=== PATIENT | male | born 1955 | race Caucasian/White ===

== ENCOUNTER 2018-10-16 12:49 | Observation (INO) ==
--- NOTE | 2018-10-16 16:11 | DR.H&P ---
H&P - History & Physical for Day of: H&P Date: 10/16/18 - History of Present Illness History of Present Illness: patient is a 63-year-old male that presents for evaluation of medical complaints. Patient reports continued left ear pain. Does report that he has been using the drops 3 times a day. Patient reports a problem with drug use. Does report that he has been shooting up methamphetamines for 4 years now. Does report that he would like help. Does state that he spends $150 per month. States that he does report that he has a problem. States that he feels like his veins are leaking due to injecting. states that he would like to be admitted for treatment. Does report severe depression. Does report that his last use was on Monday. Does report that blood sugars are severely elevated. Glucose could not be read in office. Does report that he ate peanut butter and chocolate Cheerios this morning. Does report a decrease in urination. Patient voices no other complaints at this time. - Past Medical History Past Medical History: Diabetes, Hypertension, Hypothyroidism Additional Medical History: Obesity, Fibromylagia, BPH - Social History Does patient currently use any type of tobacco product: Yes Have you used tobacco products in the last 12 months: Yes Type of Tobacco Use: Cigarettes Does any household member use tobacco: No Alcohol Use: None Drug Use: Methamphetamine - Medications Home Medications: No Known Drug Allergies Allergy (Verified 10/16/18 15:57) - Review of Systems Constitutional: Malaise Eyes: No Symptoms Reported ENT: No Symptoms Reported Respiratory: No Symptoms Reported Cardiovascular: No Symptoms Reported Gastrointestinal: No Symptoms Reported Genitourinary: No Symptoms Reported Musculoskeletal: No Symptoms Reported Skin: No Symptoms Reported Neurological: No Symptoms Reported Oriented: Normal Eyes: Normal Ear: Normal Nose: Normal Throat: Normal Respiratory: Clear Throughout Cardiovascular: Normal : Normal Auscultation: Bowel Sounds: Normal Palpation: Normal Tenderness: Normal Skin: Wound Musculoskeletal: Normal Psychiatric: Depression Mood Description: Flat Affect: Flat Speech Pattern: Clear - Assessment/Plan (1) Diabetes mellitus Qualifiers: Diabetes mellitus type: type 2 Diabetes mellitus complication status: with hyperglycemia Status: Acute Plan: Glucose checks, Sliding scale coverage, 1800 ADA diet (2) Methamphetamine abuse Status: Acute Plan: Social service consult for treatment (3) Hypertension Qualifiers: Hypertension type: essential hypertension Qualified Code(s): I10 - Essential (primary) hypertension Status: Acute Plan: Monitor BP (4) Depression Status: Acute Plan: Social service consult for treatment facility - Allergies Allergies/Adverse Reactions: Allergies Allergy/AdvReac Type Severity Reaction Status Date / Time No Known Drug Allergies Allergy Verified 10/16/18 15:57
[2018-10-16 17:10] LABS: BASOPHILS # (AUTO) 0.1 X10^3/uL (0.0-0.1); BASOPHILS % (AUTO) 1.5 % (0.2-1.0); EOSINOPHILS # (AUTO) 0.2 x10^3/uL (0.0-0.2); HEMATOCRIT 44.6 % (42.0-54.0); HEMOGLOBIN 15.1 g/dL (13.5-18.0); LYMPHOCYTES # (AUTO) 1.8 X10^3/uL (1.3-2.9); LYMPHOCYTES % (AUTO) 27.7 % (21.0-51.0); MEAN CORPUSCULAR HEMOGLOBIN 28.9 pg (27.0-34.0); MEAN CORPUSCULAR HGB CONC 33.9 g/dL (33.0-35.0); MEAN CORPUSCULAR VOLUME 85.3 fL (80.0-100.0); MEAN PLATELET VOLUME 7.8 fL (7.4-11.0); MONOCYTES # (AUTO) 0.5 x10^3/uL (0.3-0.8); MONOCYTES % (AUTO) 7.8 % (0.0-13.0); PLATELET COUNT 246 X10^3/uL (150.0-450.0); RED BLOOD COUNT 5.23 X10^6/uL (4.7-6.0); RED CELL DISTRIBUTION WIDTH 13.2 % (11.6-16.5); WHITE BLOOD COUNT 6.6 X10^3/uL (3.6-10.0)
[2018-10-16 17:32] LABS: ALANINE AMINOTRANSFERASE 42 Units/L (12-78); ALBUMIN 3.2 g/dL (3.4-5.0); ALKALINE PHOSPHATASE 119 Units/L (46-116); ASPARTATE AMINO TRANSFERASE 16 Units/L (15-37); BLOOD UREA NITROGEN 19 mg/dL (7-18); CALCIUM 8.9 mg/dL (8.5-10.1); CARBON DIOXIDE 26.6 mmol/L (21-32); CHLORIDE 98 mmol/L (98-107); COR CA(FOR HYPOALB) 9.5 mg/dL (8.5-10.1); COR NA(FOR HYPERGLY) 142 mmol/L (136-145); CREATININE 0.86 mg/dL (0.70-1.30); SODIUM 135 mmol/L (136-145); TOTAL PROTEIN 6.8 g/dL (6.4-8.2); eGFR NON BLACK RACES > 60 (>60)
[2018-10-16] MEDS: HumuLIN R SUBCUT PRN ×2 (17:32→20:59)
[2018-10-16] MEDS: NICOTINE PATCH TD SCH (17:50)
[2018-10-16 18:15] LABS: BILIRUBIN,URINE NEGATIVE (NEGATIVE); BLOOD/HEMOGLOBIN,URINE NEGATIVE (NEGATIVE); GLUCOSE, URINE 4+ (NEGATIVE); KETONES,URINE NEGATIVE (NEGATIVE); LEUKOCYTE ESTERASE ,URINE NEGATIVE (NEGATIVE); NITRITES,URINE NEGATIVE (NEGATIVE); PROTEIN,URINE NEGATIVE (NEGATIVE); UROBILINOGEN,URINE NORMAL (NORMAL)
[2018-10-16 18:17] LABS: APPEARANCE,URINE CLEAR (CLEAR); COLOR,URINE YELLOW (YELLOW)
[2018-10-16 18:21] VITALS: BMI 31.1
[2018-10-16] MEDS: NS 1000 ML 1,000 ML IV SCH (18:24)
[2018-10-17] MEDS: NS 1000 ML 1,000 ML IV SCH ×3 (04:39→19:09)
[2018-10-17] MEDS: HumuLIN R SUBCUT PRN ×4 (05:56→22:32)
[2018-10-17 06:22] LABS: BASOPHILS # (AUTO) 0.1 X10^3/uL (0.0-0.1); EOSINOPHILS # (AUTO) 0.2 x10^3/uL (0.0-0.2); EOSINOPHILS % (AUTO) 4.2 % (0.9-2.9); HEMATOCRIT 46.3 % (42.0-54.0); HEMOGLOBIN 15.9 g/dL (13.5-18.0); LYMPHOCYTES # (AUTO) 2.2 X10^3/uL (1.3-2.9); LYMPHOCYTES % (AUTO) 38.1 % (21.0-51.0); MEAN CORPUSCULAR HEMOGLOBIN 29.4 pg (27.0-34.0); MEAN CORPUSCULAR HGB CONC 34.3 g/dL (33.0-35.0); MEAN CORPUSCULAR VOLUME 85.7 fL (80.0-100.0); MONOCYTES # (AUTO) 0.5 x10^3/uL (0.3-0.8); MONOCYTES % (AUTO) 9.2 % (0.0-13.0); NEUTROPHILS # (AUTO) 2.7 x10^3/uL (2.2-4.8); NEUTROPHILS % (AUTO) 47.5 % (42.0-75.0); PLATELET COUNT 194 X10^3/uL (150.0-450.0); RED CELL DISTRIBUTION WIDTH 12.7 % (11.6-16.5); WHITE BLOOD COUNT 5.6 X10^3/uL (3.6-10.0)
[2018-10-17 06:31] LABS: ALANINE AMINOTRANSFERASE 39 Units/L (12-78); ALBUMIN 3.1 g/dL (3.4-5.0); ALKALINE PHOSPHATASE 118 Units/L (46-116); ASPARTATE AMINO TRANSFERASE 16 Units/L (15-37); BLOOD UREA NITROGEN 15 mg/dL (7-18); CALCIUM 8.5 mg/dL (8.5-10.1); CHLORIDE 99 mmol/L (98-107); COR CA(FOR HYPOALB) 9.2 mg/dL (8.5-10.1); COR NA(FOR HYPERGLY) 142 mmol/L (136-145); CREATININE 0.72 mg/dL (0.70-1.30); SODIUM 136 mmol/L (136-145); TOTAL PROTEIN 6.7 g/dL (6.4-8.2); eGFR NON BLACK RACES > 60 (>60)
[2018-10-17] MEDS: NICOTINE PATCH TD SCH (09:21)
[2018-10-17] MEDS ORDERED: PATIENT'S HOME MEDICATION PO PRN (10:18)
[2018-10-17] MEDS: PATIENT'S HOME MEDICATION PO PRN ×2 (10:58→19:00)
[2018-10-17] MEDS ORDERED: ACETAMINOPHEN CODEINE PO PRN (12:25)
[2018-10-17] MEDS: TOPROL XL PO SCH (13:20)
[2018-10-17] MEDS: PriLOSEC PO SCH (13:21)
[2018-10-17] MEDS: ANTIVERT TAB 25 MG PO SCH ×2 (13:21→21:09)
[2018-10-17] MEDS: LASIX PO SCH (13:21)
[2018-10-17] MEDS: PROSCAR PO SCH (13:22)
[2018-10-17] MEDS: SYNTHROID 100 mcg TAB PO SCH (13:22)
[2018-10-17] MEDS: CARAFATE PO SCH ×2 (13:22→21:09)
[2018-10-17] MEDS: PROzac PO SCH (13:22)
[2018-10-17] MEDS: PLAVIX PO SCH (13:22)
[2018-10-17] MEDS: PRAVACHOL PO SCH (13:23)
[2018-10-18] MEDS: ANTIVERT TAB 25 MG PO SCH (06:08)
[2018-10-18] MEDS: CARAFATE PO SCH (06:08)
[2018-10-18] MEDS: SYNTHROID 100 mcg TAB PO SCH (06:09)
[2018-10-18] MEDS: HumuLIN R SUBCUT PRN (06:09)
[2018-10-18 06:14] LABS: BASOPHILS # (AUTO) 0.1 X10^3/uL (0.0-0.1); EOSINOPHILS # (AUTO) 0.3 x10^3/uL (0.0-0.2); EOSINOPHILS % (AUTO) 3.9 % (0.9-2.9); HEMATOCRIT 43.8 % (42.0-54.0); HEMOGLOBIN 15.1 g/dL (13.5-18.0); LYMPHOCYTES # (AUTO) 2.7 X10^3/uL (1.3-2.9); LYMPHOCYTES % (AUTO) 40.1 % (21.0-51.0); MEAN CORPUSCULAR HEMOGLOBIN 29.1 pg (27.0-34.0); MEAN CORPUSCULAR HGB CONC 34.4 g/dL (33.0-35.0); MEAN CORPUSCULAR VOLUME 84.4 fL (80.0-100.0); MEAN PLATELET VOLUME 8.6 fL (7.4-11.0); MONOCYTES # (AUTO) 0.6 x10^3/uL (0.3-0.8); NEUTROPHILS # (AUTO) 3.1 x10^3/uL (2.2-4.8); PLATELET COUNT 182 X10^3/uL (150.0-450.0); RED CELL DISTRIBUTION WIDTH 13.1 % (11.6-16.5); WHITE BLOOD COUNT 6.6 X10^3/uL (3.6-10.0)
[2018-10-18 06:39] LABS: ALANINE AMINOTRANSFERASE 48 Units/L (12-78); ALBUMIN 3.1 g/dL (3.4-5.0); ALKALINE PHOSPHATASE 117 Units/L (46-116); ASPARTATE AMINO TRANSFERASE 32 Units/L (15-37); BLOOD UREA NITROGEN 12 mg/dL (7-18); CALCIUM 8.9 mg/dL (8.5-10.1); CARBON DIOXIDE 25.5 mmol/L (21-32); CHLORIDE 101 mmol/L (98-107); COR CA(FOR HYPOALB) 9.6 mg/dL (8.5-10.1); COR NA(FOR HYPERGLY) 143 mmol/L (136-145); CREATININE 0.68 mg/dL (0.70-1.30); SODIUM 137 mmol/L (136-145); TOTAL PROTEIN 6.5 g/dL (6.4-8.2); eGFR NON BLACK RACES > 60 (>60)
[2018-10-18 07:05] LABS: PLATELET MORPHOLOGY COMMENT NORMAL (NORMAL)
[2018-10-18] MEDS ORDERED: AMARYL TAB 4 MG PO SCH (08:25)
[2018-10-18] MEDS: NICOTINE PATCH TD SCH (08:41)
[2018-10-18] MEDS: PROzac PO SCH (08:42)
[2018-10-18] MEDS: PROSCAR PO SCH (08:42)
[2018-10-18] MEDS: PriLOSEC PO SCH (08:43)
[2018-10-18] MEDS: PLAVIX PO SCH (08:43)
[2018-10-18] MEDS: LASIX PO SCH (08:44)
[2018-10-18] MEDS: TOPROL XL PO SCH (08:44)
[2018-10-18] MEDS: PRAVACHOL PO SCH (08:44)
[2018-10-18] MEDS: NS 1000 ML 1,000 ML IV SCH (08:52)
[2018-10-18] MEDS ORDERED: ZyrTEC TAB 10 MG PO SCH (09:00)
[2018-10-18] MEDS ORDERED: CLARITIN PO SCH (09:00)
[2018-10-18] MEDS ORDERED: FLONASE NASAL SPRAY ENOSTRIL SCH (09:00)
[2018-10-18 10:31] VITALS: BP 83/51
[2018-10-18] MEDS ORDERED: SNACK - Diabetic Appropriate PO SCH (20:00)
== END 2018-10-18 09:10 | disposition left against medical advice (07) ==
LOC: MED/SURG
PROVIDERS: ADMIT Internal Medicine; ATTEND Internal Medicine
DX: H92.02 Otalgia, left ear; E11.65 Type 2 diabetes mellitus with hyperglycemia; I10 Essential (primary) hypertension; F32.89 Other specified depressive episodes; M79.7 Fibromyalgia; E03.8 Other specified hypothyroidism; F15.10 Other stimulant abuse, uncomplicated; B95.7 Other staphylococcus as the cause of diseases classified elsewhere
CPT/HCPCS: 36415; 80053; 80307; 81003; 85025; 87040; 96367; 96372; A4222; S0138; G0378; G0434; J1815; J7030

== ENCOUNTER 2021-01-12 17:19 | Observation (INO) ==
--- NOTE | 2021-01-12 17:49 | DR.H&P ---
H&P - History & Physical for Day of: H&P Date: 01/12/21 - Chief Complaint Chief Complaint: HYPERGLYCEMIA, HTN, CHRONIC BACK PAIN - History of Present Illness History of Present Illness: Patient is a 65 year old male that is a direct admit per Dr. Landon's office secondary to hyperglycemia, hypertension and chronic and intractable pain. Patient's glucose is 412. Reports that he has been unable to get it down with medications at home. BP is elevated at 171/91. Reports pain that radiates down his legs. Reports falling. Denies syncope. Patient will be admitted for further evaluation. - Past Medical History Past Medical History: Diabetes, Hypertension, Hypothyroidism Additional Medical History: Obesity, Fibromylagia, BPH - Past Surgical History Surgical History: Angioplasty/Stents, Appendectomy, Cholecystectomy, Other - Family History Family Medical History: Diabetes Mellitus, [place] - Medications Home Medications: No Known Drug Allergies Allergy (Verified 07/21/20 07:23) - Review of Systems Constitutional: See HPI Eyes: See HPI ENT: See HPI Respiratory: See HPI Cardiovascular: See HPI Gastrointestinal: See HPI Genitourinary: See HPI Musculoskeletal: See HPI Skin: See HPI Neurological: See HPI - Physical Exam Vital Signs: Blood Pressure [Left Arm] 107/56 Blood Pressure [Right Arm] 83/51 Blood Pressure 137/83 Oriented: Normal Eyes: Normal Ear: Normal Nose: Normal Throat: Normal Respiratory: Clear Throughout Cardiovascular: Normal : Normal Auscultation: Bowel Sounds: Normal Palpation: Normal Tenderness: Normal Skin: Bruising Musculoskeletal: Tender, Instability Psychiatric: Normal, Anxiety, Depression Mood Description: Flat, Withdrawn, Anxious Affect: Anxious, Depressed Speech Pattern: Clear - Assessment/Plan (1) Diabetes mellitus Qualifiers: Diabetes mellitus type: type 2 Diabetes mellitus complication status: with hyperglycemia Status: Acute (2) Methamphetamine abuse Status: Acute (3) Hypertension Qualifiers: Hypertension type: essential hypertension Qualified Code(s): I10 - Essential (primary) hypertension Status: Acute (4) Back pain at L4-L5 level Status: Acute - Allergies Allergies/Adverse Reactions: Allergies Allergy/AdvReac Type Severity Reaction Status Date / Time No Known Drug Allergies Allergy Verified 07/21/20 07:23
[2021-01-12] MEDS ORDERED: SOLU-Medrol 125 MG VIAL IVP ONE (17:58)
[2021-01-12] MEDS ORDERED: CATAPRES TAB 0.1 MG PO PRN (17:58)
[2021-01-12] MEDS ORDERED: NS 1000 ML 1,000 ML IV ONE (17:58)
[2021-01-12] MEDS: SNACK - Diabetic Appropriate PO SCH (19:55)
[2021-01-12 20:07] LABS: BASOPHILS # (AUTO) 0.1 X10^3/uL (0.0-0.1); BASOPHILS % (AUTO) 1.3 % (0.2-1.0); EOSINOPHILS # (AUTO) 0.4 x10^3/uL (0.0-0.2); HEMATOCRIT 46.2 % (42.0-54.0); HEMOGLOBIN 15.7 g/dL (13.5-18.0); LYMPHOCYTES # (AUTO) 2.1 X10^3/uL (1.3-2.9); LYMPHOCYTES % (AUTO) 29.2 % (21.0-51.0); MEAN CORPUSCULAR HEMOGLOBIN 30.1 pg (27.0-34.0); MEAN CORPUSCULAR HGB CONC 34.1 g/dL (33.0-35.0); MEAN CORPUSCULAR VOLUME 88.2 fL (80.0-100.0); MEAN PLATELET VOLUME 6.7 fL (7.4-11.0); MONOCYTES # (AUTO) 0.5 x10^3/uL (0.3-0.8); MONOCYTES % (AUTO) 7.3 % (0.0-13.0); NEUTROPHILS # (AUTO) 4.1 x10^3/uL (2.2-4.8); NEUTROPHILS % (AUTO) 57.2 % (42.0-75.0); PLATELET COUNT 242 X10^3/uL (150.0-450.0); RED BLOOD COUNT 5.24 X10^6/uL (4.7-6.0); RED CELL DISTRIBUTION WIDTH 12.8 % (11.6-16.5); WHITE BLOOD COUNT 7.2 X10^3/uL (3.6-10.0)
[2021-01-12] MEDS: NORCO 5/325 MG TAB PO PRN (20:10)
[2021-01-12] MEDS: NICOTINE PATCH TD SCH (20:10)
[2021-01-12] MEDS: NS 1000 ML 1,000 ML IV SCH (20:18)
[2021-01-12] MEDS: COLACE CAP 100 MG PO SCH ×2 (20:18→20:19)
[2021-01-12] MEDS: MILK OF MAGNESIA PO SCH (20:19)
[2021-01-12 20:24] LABS: HEMOGLOBIN A1C 10.2 %
[2021-01-12 20:27] LABS: BILIRUBIN,URINE NEGATIVE (NEGATIVE); BLOOD/HEMOGLOBIN,URINE NEGATIVE (NEGATIVE); GLUCOSE, URINE 4+ (NEGATIVE); KETONES,URINE NEGATIVE (NEGATIVE); LEUKOCYTE ESTERASE ,URINE NEGATIVE (NEGATIVE); NITRITES,URINE NEGATIVE (NEGATIVE); PROTEIN,URINE NEGATIVE (NEGATIVE); UROBILINOGEN,URINE NORMAL (NORMAL)
[2021-01-12 20:29] LABS: APPEARANCE,URINE CLEAR (CLEAR); COLOR,URINE STRAW (YELLOW)
[2021-01-12] MEDS ORDERED: SOLU-Medrol 125 MG VIAL ONE (20:30)
[2021-01-12 20:46] LABS: ALANINE AMINOTRANSFERASE 52 Units/L (12-78); ALBUMIN 3.6 g/dL (3.4-5.0); ALKALINE PHOSPHATASE 98 Units/L (46-116); ASPARTATE AMINO TRANSFERASE 16 Units/L (15-37); BLOOD UREA NITROGEN 17 mg/dL (7-18); CALCIUM 8.7 mg/dL (8.5-10.1); CARBON DIOXIDE 27.9 mmol/L (21-32); CHLORIDE 101 mmol/L (98-107); COR NA(FOR HYPERGLY) 144 mmol/L (136-145); CREATININE 0.75 mg/dL (0.70-1.30); SODIUM 138 mmol/L (136-145); TOTAL PROTEIN 6.7 g/dL (6.4-8.2); TSH (3RD GENERATION) 4.994 uIU/mL (0.358-3.74); eGFR NON BLACK RACES > 60 (>60)
[2021-01-12] MEDS: HumuLIN R SUBCUT PRN (20:47)
--- NOTE | 2021-01-12 21:13 | RAD ---
EXAM: CHEST X-RAYHISTORY: Shortness of breath.TECHNIQUE: AP chest x-ray dated January 12, 2021 at 8:11 PM.COMPARISON: None available.FINDINGS:The heart size and mediastinum are within normal limits. There is approximately 4.5 cm asymmetrical elevation of the right hemidiaphragm, with minimal compressive right basilar atelectasis; cannot rule out occult pneumonic infiltrate in this region in the appropriate clinical setting. Consider follow-up evaluation with CT for optimal assessment of the region as clinically warranted. The lung miller and costophrenic angles are otherwise clear. There is no acute parenchymal infiltrate, pleural effusion, or pneumothorax seen. The visualized bony structures are within normal limits.IMPRESSION:1. No definite evidence for acute cardiopulmonary disease seen.2. Approximately 4.5 cm asymmetrical elevation of the right hemidiaphragm, with minimal compressive right basilar atelectasis; cannot rule out occult pneumonic infiltrate in this region in the appropriate clinical setting. Consider follow-up evaluation with CT for optimal assessment of the region as clinically warranted.Electronically signed by: Alexei Garcia (Jan 12, 2021 21:11:52)
[2021-01-12] MEDS: TORADOL 30 MG VIAL IVP PRN (23:15)
[2021-01-13 00:38] VITALS: BMI 29.9
[2021-01-13] MEDS: NORCO 5/325 MG TAB PO PRN ×3 (05:33→21:36)
[2021-01-13] MEDS: HumuLIN R SUBCUT PRN ×4 (06:05→21:14)
[2021-01-13 06:51] LABS: ALANINE AMINOTRANSFERASE 59 Units/L (12-78); ALBUMIN 4.3 g/dL (3.4-5.0); ALKALINE PHOSPHATASE 120 Units/L (46-116); ASPARTATE AMINO TRANSFERASE 20 Units/L (15-37); BLOOD UREA NITROGEN 19 mg/dL (7-18); CALCIUM 9.7 mg/dL (8.5-10.1); CARBON DIOXIDE 26.8 mmol/L (21-32); CHLORIDE 100 mmol/L (98-107); COR NA(FOR HYPERGLY) 145 mmol/L (136-145); CREATININE 0.68 mg/dL (0.70-1.30); SODIUM 139 mmol/L (136-145); TOTAL PROTEIN 8.2 g/dL (6.4-8.2); eGFR NON BLACK RACES > 60 (>60)
[2021-01-13 07:02] LABS: BASOPHILS % (AUTO) 0.4 % (0.2-1.0); EOSINOPHILS % (AUTO) 0.1 % (0.9-2.9); HEMATOCRIT 54.2 % (42.0-54.0); LYMPHOCYTES % (AUTO) 9.5 % (21.0-51.0); MEAN CORPUSCULAR HEMOGLOBIN 30.6 pg (27.0-34.0); MEAN CORPUSCULAR HGB CONC 34.6 g/dL (33.0-35.0); MEAN CORPUSCULAR VOLUME 88.7 fL (80.0-100.0); MEAN PLATELET VOLUME 6.9 fL (7.4-11.0); MONOCYTES # (AUTO) 0.3 x10^3/uL (0.3-0.8); MONOCYTES % (AUTO) 2.7 % (0.0-13.0); NEUTROPHILS # (AUTO) 8.8 x10^3/uL (2.2-4.8); NEUTROPHILS % (AUTO) 87.3 % (42.0-75.0); PLATELET COUNT 268 X10^3/uL (150.0-450.0); RED BLOOD COUNT 6.11 X10^6/uL (4.7-6.0); WHITE BLOOD COUNT 10.1 X10^3/uL (3.6-10.0)
[2021-01-13 07:04] LABS: HEMOGLOBIN 18.7 g/dL (13.5-18.0)
[2021-01-13] MEDS: NICOTINE PATCH TD SCH (08:16)
[2021-01-13] MEDS: MILK OF MAGNESIA PO SCH ×2 (08:18→21:33)
[2021-01-13] MEDS: TORADOL 30 MG VIAL IVP PRN ×2 (08:19→18:13)
[2021-01-13] MEDS ORDERED: APRESOLINE INJ 20 MG VIAL IVP ONE (08:45)
[2021-01-13] MEDS: ROCEPHIN VIAL 1 GRAM 1 G in NS 100 ML IV + SPIKE MINIBAG* 100 ML IV SCH ×2 (09:45→10:56)
[2021-01-13] MEDS: FLOMAX PO SCH (09:45)
[2021-01-13] MEDS: TOPROL XL PO SCH (09:45)
[2021-01-13] MEDS: PLAVIX PO SCH (09:45)
[2021-01-13] MEDS: PROzac PO SCH (09:45)
[2021-01-13] MEDS: SYNTHROID 100 mcg TAB PO SCH (09:46)
[2021-01-13] MEDS ORDERED: SALINE 3% 15 ML NEB TX NEB ONE (10:57)
[2021-01-13] MEDS ORDERED: SALINE 3% 15 ML NEB TX ONE (11:00)
[2021-01-13] MEDS: LOVENOX INJ 40 MG SYR SC SCH (11:37)
[2021-01-13] MEDS ORDERED: XOPENEX 1.25 MG/3 ML NEBULE NEB ONE (12:59)
[2021-01-13] MEDS: XOPENEX 1.25 MG/3 ML NEBULE NEB SCH ×2 (13:02→20:10)
[2021-01-13] MEDS: NS 1000 ML 1,000 ML IV SCH (17:23)
--- NOTE | 2021-01-13 19:04 | RAD ---
EXAM: LUMBAR SPINE X-RAY SERIESHISTORY: Back pain.TECHNIQUE: 5 viewsCOMPARISON: None available.FINDINGS:No vertebral fracture, bony erosion, or sclerosis is identified. There is no gross malalignment, spondylolisthesis, or retrolisthesis seen.L1-S1: Moderate to severe multilevel DDD (most severe at L3-S1) marked by severe disc space narrowing some prominent anterior/lateral marginal osteophytosis.The pedicles are intact throughout. There is no paraspinal soft tissue mass seen.IMPRESSION:1. L1-S1: Moderate to severe multilevel DDD (most severe at L3-S1) marked by severe disc space narrowing some prominent anterior/lateral marginal osteophytosis.2. Consider follow-up evaluation with sectional imaging (CT and/or MRI) if symptoms persist or worsen.Electronically signed by: Alexei Garcia (Jan 13, 2021 19:01:49)
--- NOTE | 2021-01-13 19:07 | RAD ---
PROCEDURE: Thoracic spine 2 views.HISTORY: Thoracic degenerative disc disease.TECHNIQUE: AP and lateral views.COMPARISON: None .TECHNICAL QUALITY: Satisfactory .FINDINGS:No acute fracture or displacement.No lytic or blastic lesion.[id number] spondylosis with some scattered disc space narrowing throughout the thoracic spine.Previous anterior fusion with plate and screws lower cervical spine.IMPRESSION:1. No acute bony abnormality.2. Degenerative disc disease and thoracic spondylosis.Electronically signed by: Reid Kruse (Jan 13, 2021 19:04:29)
[2021-01-13] MEDS: REQUIP PO SCH (21:04)
[2021-01-13] MEDS: QUETIAPINE 400 MG PO SCH (21:08)
[2021-01-13] MEDS: SNACK - Diabetic Appropriate PO SCH (21:32)
[2021-01-13] MEDS: COLACE CAP 100 MG PO SCH (21:33)
[2021-01-14 05:45] LABS: ALANINE AMINOTRANSFERASE 41 Units/L (12-78); ALBUMIN 3.3 g/dL (3.4-5.0); ALKALINE PHOSPHATASE 82 Units/L (46-116); ASPARTATE AMINO TRANSFERASE 17 Units/L (15-37); BLOOD UREA NITROGEN 20 mg/dL (7-18); CALCIUM 8.6 mg/dL (8.5-10.1); CARBON DIOXIDE 24.6 mmol/L (21-32); CHLORIDE 105 mmol/L (98-107); COR CA(FOR HYPOALB) 9.2 mg/dL (8.5-10.1); COR NA(FOR HYPERGLY) 145 mmol/L (136-145); CREATININE 0.55 mg/dL (0.70-1.30); SODIUM 141 mmol/L (136-145); eGFR NON BLACK RACES > 60 (>60)
[2021-01-14 05:55] LABS: BASOPHILS # (AUTO) 0.1 X10^3/uL (0.0-0.1); BASOPHILS % (AUTO) 1.1 % (0.2-1.0); EOSINOPHILS # (AUTO) 0.2 x10^3/uL (0.0-0.2); EOSINOPHILS % (AUTO) 3.9 % (0.9-2.9); HEMATOCRIT 44.3 % (42.0-54.0); LYMPHOCYTES # (AUTO) 2.1 X10^3/uL (1.3-2.9); LYMPHOCYTES % (AUTO) 40.1 % (21.0-51.0); MEAN CORPUSCULAR HEMOGLOBIN 30.4 pg (27.0-34.0); MEAN CORPUSCULAR HGB CONC 34.3 g/dL (33.0-35.0); MEAN CORPUSCULAR VOLUME 88.9 fL (80.0-100.0); MEAN PLATELET VOLUME 6.6 fL (7.4-11.0); MONOCYTES # (AUTO) 0.4 x10^3/uL (0.3-0.8); MONOCYTES % (AUTO) 8.4 % (0.0-13.0); NEUTROPHILS # (AUTO) 2.4 x10^3/uL (2.2-4.8); NEUTROPHILS % (AUTO) 46.5 % (42.0-75.0); PLATELET COUNT 192 X10^3/uL (150.0-450.0); RED BLOOD COUNT 4.98 X10^6/uL (4.7-6.0); WHITE BLOOD COUNT 5.2 X10^3/uL (3.6-10.0)
[2021-01-14] MEDS: HumuLIN R SUBCUT PRN ×4 (06:00→22:36)
[2021-01-14] MEDS: NORCO 5/325 MG TAB PO PRN ×2 (06:04→16:13)
[2021-01-14 06:12] LABS: HEMOGLOBIN 15.2 g/dL (13.5-18.0)
[2021-01-14] MEDS: XOPENEX 1.25 MG/3 ML NEBULE NEB SCH ×3 (06:23→20:42)
[2021-01-14] MEDS: ROCEPHIN VIAL 1 GRAM 1 G in NS 100 ML IV + SPIKE MINIBAG* 100 ML IV SCH (08:39)
[2021-01-14] MEDS: FLOMAX PO SCH (08:40)
[2021-01-14] MEDS: NICOTINE PATCH TD SCH (08:40)
[2021-01-14] MEDS: TOPROL XL PO SCH (08:40)
[2021-01-14] MEDS: PLAVIX PO SCH (08:40)
[2021-01-14] MEDS: PROzac PO SCH (08:40)
[2021-01-14] MEDS: LOVENOX INJ 40 MG SYR SC SCH (08:41)
[2021-01-14] MEDS: MILK OF MAGNESIA PO SCH ×2 (08:41→22:16)
[2021-01-14] MEDS: SYNTHROID 100 mcg TAB PO SCH (08:45)
[2021-01-14] MEDS: SOLU-Medrol 125 MG VIAL IVP SCH ×2 (14:19→22:37)
[2021-01-14] MEDS: NS 1000 ML 1,000 ML IV SCH (19:25)
[2021-01-14] MEDS: SNACK - Diabetic Appropriate PO SCH (22:15)
[2021-01-14] MEDS: QUETIAPINE 400 MG PO SCH (22:16)
[2021-01-14] MEDS: COLACE CAP 100 MG PO SCH (22:16)
[2021-01-14] MEDS: REQUIP PO SCH (22:17)
[2021-01-15] MEDS: NORCO 5/325 MG TAB PO PRN (00:16)
[2021-01-15] MEDS: SOLU-Medrol 125 MG VIAL IVP SCH (05:26)
[2021-01-15] MEDS: XOPENEX 1.25 MG/3 ML NEBULE NEB SCH (05:35)
[2021-01-15 05:59] LABS: ALANINE AMINOTRANSFERASE 47 Units/L (12-78); ALBUMIN 3.8 g/dL (3.4-5.0); ALKALINE PHOSPHATASE 96 Units/L (46-116); ASPARTATE AMINO TRANSFERASE 17 Units/L (15-37); BLOOD UREA NITROGEN 15 mg/dL (7-18); CALCIUM 9.1 mg/dL (8.5-10.1); CARBON DIOXIDE 24.2 mmol/L (21-32); CHLORIDE 102 mmol/L (98-107); COR NA(FOR HYPERGLY) 144 mmol/L (136-145); CREATININE 0.64 mg/dL (0.70-1.30); SODIUM 139 mmol/L (136-145); TOTAL PROTEIN 7.3 g/dL (6.4-8.2); eGFR NON BLACK RACES > 60 (>60)
[2021-01-15 06:04] LABS: BASOPHILS % (AUTO) 0.2 % (0.2-1.0); HEMATOCRIT 48.6 % (42.0-54.0); HEMOGLOBIN 16.8 g/dL (13.5-18.0); LYMPHOCYTES # (AUTO) 0.8 X10^3/uL (1.3-2.9); LYMPHOCYTES % (AUTO) 9.1 % (21.0-51.0); MEAN CORPUSCULAR HEMOGLOBIN 30.7 pg (27.0-34.0); MEAN CORPUSCULAR HGB CONC 34.6 g/dL (33.0-35.0); MEAN CORPUSCULAR VOLUME 88.6 fL (80.0-100.0); MEAN PLATELET VOLUME 7.2 fL (7.4-11.0); MONOCYTES # (AUTO) 0.2 x10^3/uL (0.3-0.8); NEUTROPHILS % (AUTO) 88.7 % (42.0-75.0); PLATELET COUNT 210 X10^3/uL (150.0-450.0); RED BLOOD COUNT 5.49 X10^6/uL (4.7-6.0)
[2021-01-15] MEDS: HumuLIN R SUBCUT PRN ×3 (06:22→12:22)
--- NOTE | 2021-01-15 06:24 | RAD ---
HISTORYPneumonia, COPDSTUDYChest AP [id number]/2021FINDINGSThe heart is within normal limits in size. The melissa are normal. The lungs are free of acute infiltrates. No pleural effusions are identified. Bony thorax is unremarkable.IMPRESSIONNo significant abnormality identifiedElectronically signed by: KRYSTIN ORTIZ (Jan 15, 2021 06:22:54)
[2021-01-15] MEDS ORDERED: TYLENOL #3 TAB (W/CODEINE) PO PRN (07:40)
[2021-01-15] MEDS: ROCEPHIN VIAL 1 GRAM 1 G in NS 100 ML IV + SPIKE MINIBAG* 100 ML IV SCH (10:01)
[2021-01-15] MEDS: LOVENOX INJ 40 MG SYR SC SCH (10:02)
[2021-01-15] MEDS: TOPROL XL PO SCH (10:03)
[2021-01-15] MEDS: PLAVIX PO SCH (10:03)
[2021-01-15] MEDS: PROzac PO SCH (10:03)
[2021-01-15] MEDS: FLOMAX PO SCH (10:04)
[2021-01-15] MEDS: MILK OF MAGNESIA PO SCH (10:04)
[2021-01-15] MEDS: NICOTINE PATCH TD SCH (10:25)
[2021-01-15] MEDS: SYNTHROID 100 mcg TAB PO SCH (10:30)
--- NOTE | 2021-01-15 11:03 | MRI ---
HISTORYINTRACTABLE BACK PAIN with pain in both legs and numbness in feet, prior lumbar spine surgerySTUDYMRI lumbar spine without and with IV contrastCOMPARISONX-ray 01/13/2021TECHNIQUEMultiplanar multisequence MRI of the lumbar spine was obtained without and with IV contrast. 20 cc MultiHance IV contrast.FINDINGSThe conus terminates at the L1-2 level. No spondylolisthesis. No compression fracture is seen. Degenerative endplate changes are seen at several levels. There are anterior osteophytes at T11-12 that have associated edema and enhancement. This is probably due to Modic type 1 degenerative changes. T11-12 disc appears normal. A few areas of mild endplate enhancement associated with degenerative endplate changes are seen.However, there is edema within the L3-4 disc and there is enhancement of this disc. This appearance is concerning for discitis but no adjacent osteomyelitis or paraspinous infection is seen. No abnormal enhancement of the conus or filum terminale is seen. There is mild enhancement in the right lateral recess superior to the L5-S1 disc space level that could be mild granulation tissue or scar.T12 -- L1: No significant stenosis.L1 -- L2: Mild posterior element hypertrophy and moderate posterior osteophytes cause moderate bilateral neural foraminal narrowing and mild thecal sac effacement. Mild lateral recess stenosis is seen.L2 -- L3: Mild posterior element hypertrophy causes little thecal sac effacement.L3 -- L4: Moderate posterior element hypertrophy is seen with prominent posterior osteophytes and central disc osteophyte complex. Moderate thecal sac effacement is seen with prominent right lateral recess stenosis. There is likely compression of the right L4 nerve root in the right lateral recess. Mild neural foraminal narrowing is seen.L4 -- L5: Mild posterior element hypertrophy is seen with likely left hemilaminectomy or micro laminectomy. Posterior osteophytes cause prominent right lateral recess stenosis and probable compression of the right L5 nerve root. Mild thecal sac effacement and left lateral recess stenosis is seen. Moderate bilateral neural foraminal narrowing is seen.L5 -- S1:Left hemilaminectomy. Prominent posterior osteophytes. Mild posterior element hypertrophy. Moderate bilateral neural foraminal narrowing. Mild left lateral recess stenosis with no central canal stenosis. Probable mild enhancing granulation tissue surrounding the right S1 nerve root in the right lateral recess given enhancement but there is no suggestion of scar or distortion of the nerve root.Likely large left renal cyst is partially included on the study.IMPRESSIONEdema and enhancement are seen within the L3-4 disc without adjacent abnormal bone signal. Findings could represent localized discitis. No adjacent soft tissue infection is seen.Edema and enhancement within the anterior aspects of the T11 and T12 vertebral bodies is likely Modic type 1 degenerative changes associated with large anterior osteophytes at this level.No disc herniations are seen.Posterior osteophytes and posterior element hypertrophy cause prominent right lateral recess stenosis at L4-5 but only mild thecal sac effacement.Moderate thecal sac effacement is due to posterior osteophytes and posterior element hypertrophy at L3-4 with prominent right lateral recess stenosis, also.Possible enhancing granulation tissue in the right lateral recess above the L5-S1 level with postsurgical changes at this level. This causes no mass effect.Electronically signed by: Stevenson Lopez (Jan 15, 2021 11:01:47)
[2021-01-15] MEDS ORDERED: FLEXERIL TAB 10 MG PO PRN (12:48)
[2021-01-15 13:34] VITALS: BP 122/72
[2021-01-15] MEDS ORDERED: NEURONTIN CAP 100 MG PO SCH (14:00)
== END 2021-01-15 12:50 | disposition home or self-care (01) ==
LOC: MED/SURG
PROVIDERS: ADMIT Internal Medicine; ATTEND Internal Medicine
DX: M54.5 Low back pain; E11.65 Type 2 diabetes mellitus with hyperglycemia; I10 Essential (primary) hypertension; F41.8 Other specified anxiety disorders; J18.8 Other pneumonia, unspecified organism; Z91.81 History of falling; M48.061 Spinal stenosis, lumbar region without neurogenic claudication; I16.0 Hypertensive urgency; Z20.822 Contact with and (suspected) exposure to COVID-19; F32.89 Other specified depressive episodes; F11.10 Opioid abuse, uncomplicated; R26.89 Other abnormalities of gait and mobility; R06.02 Shortness of breath; M51.36 Other intervertebral disc degeneration, lumbar region